=== PATIENT | male | born 1960 | race Caucasian/White ===

== ENCOUNTER → 2022-01-14 | Outpatient (CLI) | payer OTHER ==
[~2022-01-14] MED LIST: ATOR10TA69 PO; TAMS-1 PO
== END | disposition home or self-care (01) ==
LOC: SHCH 10:08
PROVIDERS: ATTEND Internal Medicine Cardiovascular Disease
DX: I48.0 Paroxysmal atrial fibrillation (principal); E78.5 Hyperlipidemia, unspecified
CPT/HCPCS: 93306

== ENCOUNTER → 2022-05-27 | Outpatient (CLI) | payer OTHER ==
[~2022-05-27] MED LIST changes: +IOHEXOL 350 MG/ML 100ML INFUS..BTL IV ONE
== END | disposition home or self-care (01) ==
LOC: RAH 10:53
PROVIDERS: ATTEND Internal Medicine Cardiovascular Disease
DX: I48.91 Unspecified atrial fibrillation (principal)
CPT/HCPCS: 71275; Q9967

== ENCOUNTER 2022-06-14 05:55 | Observation (INO) | payer OTHER ==
[2022-06-10 09:20] LABS: BASOPHILS % (AUTO) 0.8 % (0.0-5.0); EOSINOPHILS % (AUTO) 1.5 % (0.0-8.0); LYMPHOCYTES % (AUTO) 25.6 % (21.0-51.0); MEAN CORPUSCULAR HGB CONC 33.1 g/dL (32.0-36.0); MEAN CORPUSCULAR VOLUME 93.5 fL (79-99); MONOCYTES % (AUTO) 10.2 % (3.0-13.0); NEUTROPHILS % (AUTO) 61.7 % (40.0-77.0); PLATELET COUNT (AUTO) 196 K/uL (130-400); RED BLOOD CELL COUNT(AUTO) 4.49 MIL/uL (4.50-6.20); RED CELL DISTRIBUTION WIDTH 12.8 % (11.0-15.5); WHITE BLOOD COUNT (AUTO) 5.2 K/uL (4.8-10.8)
[2022-06-10 09:24] VITALS: BP 114/68
[2022-06-10 09:38] LABS: INR 0.96 (0.85-1.15); PROTHROMBIN TIME 10.5 SEC (9.6-11.6)
[2022-06-10 09:39] LABS: PARTIAL THROMBOPLASTIN TIME 30.2 SEC (26.3-35.5)
[2022-06-14] VITALS (24 sets, daily range): BP systolic 99–123; BP diastolic 50–72
[~2022-06-14] VITALS: Ht 200.7 cm; Wt 80.7 kg
[~2022-06-14 05:55] MED LIST changes: +APIX5TAB PO; +FLEC50TA3 PO; -IOHEXOL 350 MG/ML 100ML INFUS..BTL IV ONE; +METO25TA6 PO; -TAMS-1 PO
[2022-06-14] MEDS ORDERED: 0.9%NACL 1000ML 1,000 ML IV ONE (06:33)
[2022-06-14] MEDS ORDERED: ONDANSETRON 4MG INJ ONE ×3 (07:00→12:43)
[2022-06-14] MEDS ORDERED: NEOSTIGMINE 5MG/5ML SYR IV ONE (07:00)
[2022-06-14] MEDS ORDERED: SUCCINYLCHOLINE 200MG/10ML SYR ONE (07:00)
[2022-06-14] MEDS ORDERED: GLYCOPYRROLATE 1 MG/5 ML SYRINGE ONE (07:00)
[2022-06-14] MEDS ORDERED: MIDAZOLAM HCL 1 MG/ML 2ML VIAL ONE (07:00)
[2022-06-14] MEDS ORDERED: LIDOCAINE PF 100MG/5ML (2%) SYRINGE 5ML ONE (07:00)
[2022-06-14] MEDS ORDERED: DEXAMETHASONE SOD PHOSPHATE 10MG/ML 1ML VIAL ONE (07:00)
[2022-06-14] MEDS ORDERED: FENTANYL CITRATE PF 50 MCG/1 ML 2ML VIAL ONE (07:01)
[2022-06-14] MEDS ORDERED: ROCURONIUM 10MG/1ML SYR 10 MG/ML ML ONE ×2 (07:01→10:24)
[2022-06-14] MEDS ORDERED: PROPOFOL 10 MG/ML 20ML VIAL IV ONE (07:01)
[2022-06-14] MEDS ORDERED: PHENYLEPHRINE HCL 10 MG/ML 1ML VIAL IV ONE (07:07)
[2022-06-14] MEDS ORDERED: LIDOCAINE HCL 400MG/20ML VIAL ONE (07:16)
[2022-06-14] MEDS ORDERED: HEPARIN 10,000 UNIT/10ML (1,000 UNIT/ML) VIAL ONE ×2 (07:18→08:51)
[2022-06-14] MEDS ORDERED: PROTAMINE SULFATE 10 MG/ML 25ML VIAL IV ONE (11:27)
[2022-06-14] MEDS ORDERED: ACETAMINOPHEN 325 MG TAB PO PRN (12:00)
[2022-06-14] MEDS ORDERED: METOCLOPRAMIDE 10 MG/2 ML VIAL ONE (12:57)
[2022-06-14] MEDS ORDERED: PANTOPRAZOLE 40 MG TAB DR PO SCH (13:00)
[2022-06-14] MEDS: SUCRALFATE 1 GM TABLET PO SCH ×2 (16:13→21:12)
[2022-06-14] MEDS ORDERED: ONDANSETRON 4MG INJ IVP PRN (16:30)
[2022-06-14] MEDS ORDERED: ATORVASTATIN 10 MG TABLET PO SCH (21:00)
[2022-06-14] MEDS: APIXABAN 5 MG TABLET PO SCH (21:12)
[2022-06-14] MEDS: METOPROLOL TARTRATE 25 MG TAB PO SCH (21:12)
[2022-06-15] MEDS: SUCRALFATE 1 GM TABLET PO SCH ×3 (01:12→12:32)
[2022-06-15 03:15] VITALS: BP 103/57
[2022-06-15 07:44] VITALS: BP 113/59
[2022-06-15] MEDS: APIXABAN 5 MG TABLET PO SCH (07:55)
[2022-06-15] MEDS: METOPROLOL TARTRATE 25 MG TAB PO SCH (07:58)
[2022-06-15] MEDS ORDERED: PANTOPRAZOLE 40 MG TAB DR PO SCH (09:00)
[2022-06-15] MEDS ORDERED: PANT40TA55 PO (12:30)
[2022-06-15] MEDS ORDERED: SUCR1ORA15 PO (12:30)
[2022-06-15 12:36] VITALS: BP 104/76
== END 2022-06-15 14:00 | disposition home or self-care (01) ==
LOC: DAH 05:55 → DAHIP 05:56 → DAH 05:56 → 2DH 16:00
PROVIDERS: ADMIT Internal Medicine Cardiovascular Disease; ATTEND Internal Medicine Cardiovascular Disease
DX: I48.0 Paroxysmal atrial fibrillation (principal); Z20.822 Contact with and (suspected) exposure to COVID-19; I49.9 Cardiac arrhythmia, unspecified; N40.0 Benign prostatic hyperplasia without lower urinary tract symptoms; E78.5 Hyperlipidemia, unspecified; Z79.899 Other long term (current) drug therapy; Z98.890 Other specified postprocedural states
CPT/HCPCS: 80048; 85025; 85610; 85730; 87426; 36415; 93005; 93655; 93656; C1894 ×3; A4344; C1732 ×2; C1769; C1893; A4215 ×4; C1731; A4649 ×2; G0378 ×26; J3010; J3490 ×2; J0330; J1100; J2710; J7030; J2720; J2001; J1644 ×3; J2250; J2704; J2405 ×3; J2765; J2370; A4223 ×3; A4222; A4221; A4663; A4216; A4606; 96360; 96361

== ENCOUNTER → 2022-10-25 | Outpatient (CLI) | payer OTHER ==
[~2022-10-25] MED LIST changes: -FLEC50TA3 PO; +PANT40TA55 PO; +SUCR1ORA15 PO
== END | disposition home or self-care (01) ==
LOC: SHCH 10:22
PROVIDERS: ATTEND Internal Medicine Cardiovascular Disease
DX: I48.0 Paroxysmal atrial fibrillation (principal)
CPT/HCPCS: 93306

== ENCOUNTER → 2023-01-26 | Outpatient (CLI) | payer OTHER ==
[~2023-01-26] VITALS: Ht 200.7 cm; Wt 78.7 kg
[~2023-01-26] MED LIST changes: +FLEC100T3 PO; +IMIQ1CRE22 TP
[2023-01-26 10:54] LABS: BASOPHILS # (AUTO) 0.01 K/uL (0.00-0.20); BASOPHILS % (AUTO) 0.2 % (0.0-5.0); EOSINOPHILS # (AUTO) 0.05 K/uL (0.00-0.70); EOSINOPHILS % (AUTO) 1.2 % (0.0-8.0); HEMATOCRIT 42.4 % (42-54); IMMATURE GRANULOCYTE ABSOLUTE 0.01 K/uL (0-1); LYMPHOCYTES % (AUTO) 24.1 % (21.0-51.0); MEAN CORPUSCULAR HEMOGLOBIN 31.9 pg (27.0-33.0); MEAN CORPUSCULAR HGB CONC 33.7 g/dL (32.0-36.0); MEAN CORPUSCULAR VOLUME 94.6 fL (79-99); MONOCYTES # (AUTO) 0.6 K/uL (0.1-1.0); NEUTROPHILS # (AUTO) 2.6 K/uL (1.8-7.7); NEUTROPHILS % (AUTO) 61.3 % (40.0-77.0); PLATELET COUNT (AUTO) 133 K/uL (130-400); RED BLOOD CELL COUNT(AUTO) 4.48 MIL/uL (4.50-6.20); RED CELL DISTRIBUTION WIDTH 12.4 % (11.0-15.5); WHITE BLOOD COUNT (AUTO) 4.2 K/uL (4.8-10.8)
[2023-01-26 11:05] LABS: CREATININE 0.8 mg/dL (0.5-1.5); POTASSIUM 4.2 mmol/L (3.5-5.1)
[2023-01-26 11:06] VITALS: BP 113/74; PULSE 57; RESP 18
== END | disposition home or self-care (01) ==
LOC: DAH 10:00 → EDSTATUS 13:00
PROVIDERS: ATTEND Internal Medicine Cardiovascular Disease
DX: I48.0 Paroxysmal atrial fibrillation (principal); I21.9 Acute myocardial infarction, unspecified
CPT/HCPCS: 36415; 80048; 85025; 93005

== ENCOUNTER → 2024-04-10 | Outpatient (CLI) | payer OTHER ==
[~2024-04-10] MED LIST changes: +IOHEXOL 350 MG/ML 100ML INFUS..BTL IV ONE; -PANT40TA55 PO; -SUCR1ORA15 PO
--- NOTE | 2024-04-10 12:36 | HMCIMG ---
CT CARDIAC ANGIO W/CONT. CCTA HISTORY: 100 cc of Omnipaque COMPARISON: None TECHNIQUE: Multiple sequential axial images of the chest were obtained along with the CT angiogram of the chest study. Patient was given 100 cc of Omnipaque through intravenous route. FINDINGS: There is no evidence of pulmonary nodule or parenchymal disease. No pleural effusion or pericardial effusion is seen. There is no evidence of pneumothorax. There are normal size mediastinal and hilar lymph nodes. The heart is borderline enlarged. Degenerative changes of the thoracolumbar spine are present. IMPRESSION: 1. No evidence of pulmonary nodule or effusion is seen. Please see CT angiogram report of coronary arteries.
--- NOTE | 2024-04-13 19:13 | CARDIOLOGY ---
RAD REPORT: [facility] CT ANGIO RADIOLOGY REPORT: CORONARY CT ANGIOGRAPHY DATE: Apr 13, 2024 QUALITY: Excellent CLINICAL HISTORY AND INDICATION: [chest pain ] TECHNIQUE: After obtaining a preliminary taxation agent image, contrast imaging performed on an [employer] [id number] scanner. A dedicated, limited window, coronary imaging protocol was used, with single breath-hold, retrospective ECG gating, and automated arrhythmia rejection. 100 cc of low osmolar contrast agent: Omnipaque 350 was delivered via a 18-gauge IV catheter in the right antecubital fossa, using a power injector and followed by 60 cc of normal saline bolus as a chaser. Collimated images were reformatted at 0.5 mm intervals, and sent to an offline independent workstation for interpretation, using 3D anatomic reconstructions: Curved multiplanar reconstructions, maximum intensity projections, and multiplanar imaging. No metoprolol was administered prior to scanning due to low baseline heart rate. 0.8 mg SL nitroglycerin was given. CORONARY ARTERY DESCRIPTIONS: The coronary arteries arise in normal position. Left main coronary artery: Normal caliber vessel that bifurcates into the LAD and LCx. No stenosis. Left anterior descending coronary artery: Normal caliber vessel and gives rise to diagonal and septal branches. No stenosis. Left circumflex coronary artery: Normal caliber, dominant and gives rise to a large OM branch. No stenosis. Right coronary artery: Small, non-dominant vessel. No stenosis. CAD-RADs: 0, absence of CAD. Thoracic Aorta: Normal diameter. Leda Alvarenga MD Cardiovascular Disease [facility] LEDA ALVARENGA MD Apr 13, 2024 19:13
== END | disposition home or self-care (01) ==
LOC: RAH 07:20
PROVIDERS: ATTEND Internal Medicine Cardiovascular Disease
DX: I25.10 Atherosclerotic heart disease of native coronary artery without angina pectoris (principal); M47.815 Spondylosis without myelopathy or radiculopathy, thoracolumbar region
CPT/HCPCS: 75574; Q9967

== ENCOUNTER 2024-09-17 05:50 | Day surgery (SDC) | payer OTHER ==
--- NOTE | 2024-09-13 08:39 | EKG ---
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
[2024-09-13 08:40] LABS: IMMATURE GRANULOCYTE ABSOLUTE 0.01 K/uL (0-1); NUCLEATED RED BLOOD CELLS 0.0 % (0.0-0.19); PLATELET COUNT (AUTO) 168 K/uL (130-400); RED BLOOD CELL COUNT(AUTO) 4.47 MIL/uL (4.50-6.20); RED CELL DISTRIBUTION WIDTH 12.7 % (11.0-15.5); WHITE BLOOD COUNT (AUTO) 5.0 K/uL (4.8-10.8)
[2024-09-13 08:52] LABS: CREATININE 0.8 mg/dL (0.5-1.3); GLOMERULAR FILTR. RATE CALC 98.0 mL/min (>90); GLUCOSE,RANDOM 68.0 mg/dL (70-105); SODIUM SERUM 140.0 mmol/L (136-145); UREA NITROGEN, BLOOD 18.0 mg/dL (7-18)
[2024-09-13 08:54] VITALS: BP 127/76; PULSE 76; RESP 14; TEMP 97.3
[2024-09-13 08:54] LABS: INR 1.0 (0.85-1.15)
[~2024-09-17] VITALS: Ht 200.7 cm; Wt 78.4 kg
[2024-09-17] VITALS (16 sets, daily range): BP systolic 101–135; BP diastolic 60–82; PULSE 65–84; RESP 12–18; TEMP 97.5–97.9
[~2024-09-17 05:50] MED LIST changes: -FLEC100T3 PO; -IMIQ1CRE22 TP; -IOHEXOL 350 MG/ML 100ML INFUS..BTL IV ONE; +LATA2.5D7 OS; -METO25TA6 PO
[2024-09-17] MEDS: 0.9%NACL 1000ML 1,000 ML IV ONE (06:51)
[2024-09-17] MEDS: 0.9%NACL 1000ML 1,000 ML IV SCH (06:51)
[2024-09-17] MEDS ORDERED: MIDAZOLAM HCL 1 MG/ML 2ML VIAL ONE (07:07)
[2024-09-17] MEDS ORDERED: LIDOCAINE HCL 400MG/20ML VIAL ONE (07:18)
[2024-09-17] MEDS ORDERED: SODIUM BICARB 50MEQ 50ML VIAL 50 ML ONE (07:18)
[2024-09-17] MEDS ORDERED: HEParin-NS 1,000 UNIT/500 ML 1,000 ML IV ONE (07:18)
[2024-09-17] MEDS ORDERED: ISOPROTERENOL HCL 0.2 MG/ML AMP/VIAL/BAG ONE (09:13)
[2024-09-17] MEDS ORDERED: GLYCOPYRROLATE 0.2 MG/ML 5 ML VIAL ONE (12:07)
[2024-09-17] MEDS ORDERED: NEOSTIGMINE METHYLSULFATE 1MG/ML IV ONE (12:08)
[2024-09-17] MEDS ORDERED: SUCR1TAB2 PO (12:25)
[2024-09-17] MEDS ORDERED: PANT40TA55 PO (12:25)
[2024-09-17] MEDS: SUCRALFATE 1 GM/10 ML PO ONE (13:51)
--- NOTE | 2024-09-17 14:11 | NUR ---
Femoral site clean dry and intact. No bleeding, bruising or hematoma evident. Pedal pulses intact to ble's. Denies c/o pain or chest pressure. SR evident with VS wnl. Dr. Hahn to see Patient and . Spoke to them at length. PIV saline locked. Patient tolerating fluids and small amount of Lunch. No nausea stated. Educated on discharge expectations and safety. Reported off in full to receiving Nurse, Juli BRASWELL
--- NOTE | 2024-09-17 14:25 | NUR ---
REPORT RIGHT GROIN SOFT TO TOUCH NO ACTIVE BLEEDING NOTED. MINIMAL DRAINAGE NOTED TO GAUZE. NO ACTIVE DRAINAGE OR REDNESS NOTED. AT BED SIDE. PATIENT AWAKE AND ALERT X4.
--- NOTE | 2024-09-17 14:25 | NUR ---
REPORT RECEIVED REPORT FROM MICHAELLE OSORIO AT [facility].
== END 2024-09-17 15:15 | disposition home or self-care (01) ==
LOC: DAH 05:50
PROVIDERS: ATTEND Internal Medicine Cardiovascular Disease
DX: I48.19 Other persistent atrial fibrillation (principal); E78.5 Hyperlipidemia, unspecified; Z98.49 Cataract extraction status, unspecified eye; Z79.899 Other long term (current) drug therapy; Z98.890 Other specified postprocedural states
CPT/HCPCS: 80048; 85025; 85610; 85730; 36415; 93005; 93656; 93657; 85347 ×9; C1894 ×3; C1732 ×3; A4649 ×2; C1760 ×3; C1766; J3010 ×3; J3490 ×4; J7030; J2720; J1644 ×5; J2250; J2704 ×2; J2405 ×2; J2710; J2765; J2371; A4215; A4222; A4221; A4663; A4216; A4606; A4223 ×3